=== PATIENT | male | born 1970 | race American Indian/Alaskan Native ===

== ENCOUNTER 2017-04-29 00:40 | Emergency (ER) | payer OTHER ==
[2017-04-29] MEDS ORDERED: NACL 0.9% 1000 ML 1,000 ML IV ONE (01:59)
[2017-04-29] MEDS ORDERED: TYLENOL PO ONE (02:00)
[2017-04-29] MEDS ORDERED: ZOFRAN IV ONE (02:00)
--- NOTE | 2017-04-29 02:49 | XRay Report ---
FINAL REPORT EXAM: XR CHEST ROUTINE 2V HISTORY: SOB, cough TECHNIQUE: PA and lateral views of the chest were submitted. There are no previous studies available for comparison. FINDINGS: There are patchy infiltrates in the left lower lobe compatible with pneumonia. The heart size is normal. The lungs are not congested. The right lung is clear. The skeletal structures reveal a dextroscoliosis of the thoracic spine. IMPRESSION: Left lower lobe pneumonia.
[2017-04-29 03:28] LABS: Hematocrit 37.8 % (35.5-45.6); Mean Corpuscular HGB Conc 35 % (32-34); Mean Corpuscular Hemoglobin 33 pg (28-32); Mean Corpuscular Volume 96 fl (84-94); Platelet Count 212 K/mm3 (140-440); Red Blood Count 3.94 M/mm3 (3.65-5.03); Red Cell Distribution Width 13.3 % (13.2-15.2); White Blood Count 14.2 K/mm3 (4.5-11.0)
[2017-04-29 03:43] LABS: Anion Gap 20 mmol/L; BUN/Creatinine Ratio 14; Blood Urea Nitrogen 11 mg/dL (9-20); Calcium 8.6 mg/dL (8.4-10.2); Carbon Dioxide 25 mmol/L (22-30); Chloride 87.3 mmol/L (98-107); Glucose 201 mg/dL (75-100); Potassium 3.6 mmol/L (3.6-5.0); Sodium 129 mmol/L (137-145)
[2017-04-29] MEDS ORDERED: MOTRIN PO ONE (03:51)
[2017-04-29 06:05] LABS: Anisocytosis 1+; Basophils % (Manual) 0 % (0.0-1.8); Blastocytes % (Manual) 0 %; Eosinophils % (Manual) 0 % (0.0-4.3)
[2017-04-29 06:06] LABS: Diff Status Complete; Platelet Estimate Consistent w Auto
[2017-04-29 09:08] VITALS: BP 142/87
[2017-04-29 11:42] LABS: Bilirubin,Urine NEG (Negative); Blood,Urine SM (Negative); Ketones,Urine 20 mg/dL (Negative); Leukocyte Esterase,Urine NEG (Negative); Mucus,Urine FEW /HPF; Nitrite,Urine NEG (Negative)
[2017-04-29 11:59] LABS: Protein,Urine >500 mg/dL (Negative)
== END 2017-04-29 09:54 | disposition left against medical advice (07) ==
LOC: ED 00:40
DX: R11.2 Nausea with vomiting, unspecified (principal); R50.9 Fever, unspecified; Z53.21 Procedure and treatment not carried out due to patient leaving prior to being seen by health care provider
CPT/HCPCS: 36415; 71020; 80048; 81001; 85007; 85025; 96361; 96374; J2405; J7030